=== PATIENT | female | born 1945 | race Caucasian/White ===

== ENCOUNTER 2023-12-17 08:23 | Emergency (ER) | payer OTHER ==
[~2023-12-17] VITALS: Ht 157.5 cm; Wt 80.5 kg
[~2023-12-17 08:23] MED LIST: METF-370 PO; OMEP20CA74 PO
[2023-12-17 09:21] LABS: Basophils # (auto) 0 10 ^3/uL (0-0.2); Basophils % (auto) 0.5 % (0.0-2.0); Eosinophils # (auto) 0.1 10 ^3/uL (0-0.8); Eosinophils % (auto) 2.2 % (0.0-7.0); Hematocrit 45.4 % (36.0-46.0); Hemoglobin 15.1 g/dL (12.2-16.2); Lymphocytes # (auto) 2.3 10 ^3/uL (0.4-5.4); Lymphocytes % (auto) 34.1 % (10.0-50.0); Mean Corpuscular Hemoglobin 30.3 pg (28.0-32.0); Mean Corpuscular Hgb Conc. 33.2 g/dL (32.0-36.0); Mean Corpuscular Volume 91.4 fL (80.0-100.0); Monocytes # (auto) 0.4 10 ^3/uL (0-1.3); Monocytes % (auto) 5.5 % (0.0-12.0); Neutrophils # (auto) 3.9 10 ^3/uL (1.6-8.6); Neutrophils % (auto) 57.7 % (37.0-80.0); Nucleated Red Blood Cells % 0.1 %; Red Blood Cells 4.97 10^6/uL (4.0-5.20); Red Cell Distribution Width 14.8 % (11.8-14.3); White Blood Cell 6.7 10^3/uL (4.4-10.8)
[2023-12-17 09:22] LABS: Chloride 109 mmol/L (98-107); Potassium 4.1 mmol/L (3.5-5.1); Sodium 141 mmol/L (136-145)
[2023-12-17 09:24] LABS: Anion Gap 3 (5-15); Calcium 9.7 mg/dL (8.5-10.1); Carbon Dioxide 29 mmol/L (20-30)
[2023-12-17 09:29] LABS: BUN/Creatinine Ratio 15.5 (10.0-20.0); Blood Urea Nitrogen 16 mg/dL (9-23); Glucose 108 mg/dL (74-106)
[2023-12-17 09:36] LABS: Urine Bacteria FEW /hpf (None Seen); Urine Blood Negative /uL (Negative); Urine Clarity Clear (Clear); Urine Color Yellow (Yellow); Urine Protein, UAD TRACE (Negative); Urine Specific Gravity 1.026 (1.001-1.035); Urine Urobilinogen Normal (Negative); Urine WBC 2 /hpf (0 - 5); Urine pH 5.5 (5.0-8.0)
[2023-12-17] MEDS ORDERED: NITR-87 PO (09:54)
[2023-12-17] MEDS ORDERED: PHEN99.5 PO (09:54)
[2023-12-17 09:58] VITALS: BP 187/99; PULSE 90; RESP 18; TEMP 98.1; O2SAT 98
[2023-12-17] MEDS: LOSARTAN POTASSIUM 25 MG TAB PO ONE (09:58)
== END 2023-12-17 12:26 | disposition home or self-care (01) ==
LOC: ER 08:23
DX: N39.0 Urinary tract infection, site not specified (principal); R00.2 Palpitations; E11.9 Type 2 diabetes mellitus without complications; K21.9 Gastro-esophageal reflux disease without esophagitis; I10 Essential (primary) hypertension; Z90.49 Acquired absence of other specified parts of digestive tract; Z90.710 Acquired absence of both cervix and uterus; Z88.2 Allergy status to sulfonamides
CPT/HCPCS: 36415; 71045; 80048; 81001; 84484; 85025; 87086; 87088; 87186; 93005

== ENCOUNTER 2024-03-22 16:24 | Emergency (ER) | payer OTHER ==
[~2024-03-22] VITALS: Ht 157.5 cm; Wt 80.2 kg
[~2024-03-22 16:24] MED LIST changes: +NITR-87 PO; +PHEN99.5 PO
[2024-03-22 16:36] VITALS: BP 142/70; PULSE 92; RESP 18; O2SAT 95
== END 2024-03-22 18:11 | disposition left against medical advice (07) ==
LOC: ER 16:24
DX: M79.641 Pain in right hand (principal); M79.601 Pain in right arm; M79.604 Pain in right leg; Z53.21 Procedure and treatment not carried out due to patient leaving prior to being seen by health care provider

== ENCOUNTER 2024-03-24 06:35 | Emergency (ER) | payer OTHER ==
[~2024-03-24] VITALS: Ht 157.5 cm; Wt 81.0 kg
[2024-03-24] MEDS: TETANUS-DIPTH-ACEL PERTUSSIS 0.5ML SYR Tdap IM ONE (08:30)
[2024-03-24 09:33] VITALS: BP 108/69; PULSE 71; RESP 18; TEMP 98; O2SAT 96
== END 2024-03-24 09:35 | disposition home or self-care (01) ==
LOC: ER 06:35
DX: S40.021A Contusion of right upper arm, initial encounter (principal); S60.221A Contusion of right hand, initial encounter; E11.9 Type 2 diabetes mellitus without complications; K21.9 Gastro-esophageal reflux disease without esophagitis; I10 Essential (primary) hypertension; Z90.49 Acquired absence of other specified parts of digestive tract; Z90.710 Acquired absence of both cervix and uterus; Z88.2 Allergy status to sulfonamides; W01.0XXA Fall on same level from slipping, tripping and stumbling without subsequent striking against object, initial encounter; Y93.89 Activity, other specified; Y92.89 Other specified places as the place of occurrence of the external cause; Y99.8 Other external cause status; Z85.9 Personal history of malignant neoplasm, unspecified
CPT/HCPCS: 73060; 73130; 90471; 90715

== ENCOUNTER 2024-11-26 07:56 | Inpatient (IN) | payer OTHER ==
[~2024-11-26] VITALS: Ht 157.5 cm; Wt 44.4 kg
--- NOTE | 2024-11-26 08:18 | ECG ---
[facility] Test Date: 2024-11-26 Test Time: 08:11:01 Pat Name: JULIA MARIN Department: ER Room: Gender: F Diffusion Operator: JEAN : 1945 Requested By: HERSON VILLATORO Order Number: [id number] Reading MD: Roman Villegas Measurements Intervals [place] Rate: 102 P: 44 TX: 135 QRS: -25 QRSD: 84 T: 31 QT: 331 QTc: 432 Interpretive Statements Sinus tachycardia Borderline left axis deviation Abnormal R-wave progression, late transition Baseline wander in lead(s) V1 Electronically Signed On 11-26-2024 8:22:40 PST by Roman Villegas Please click the below link to view image of tracing.
--- NOTE | 2024-11-26 08:35 | ED.PDOC ---
GI ASSESSMENT HPI Comments 79-year-old female presents with a chief complaint of abdominal pain, diarrhea with rectal bleeding x 2 days. Patient states that her pain is localized to her diffuse abdomen, nonradiating, describes as aching, and states that it has been progressively worsening over the last 2 days. Patient reports that she is having bright red, "jelly-like" diarrhea and is going to the restroom roughly 10 times a day, sometimes back to back. Patient relays that her symptoms sort of began after ingesting food that she states "did not taste right" after her son cooked her a meal. Patient denies any coffee ground emesis or black tarry stool. Patient denies recent travel. No other symptoms or modifying factors present at this time. Chief Complaint: GI Bleed Time Seen by MD: 08:24 Primary Care Provider: KEIRA Carlos Notes: Medications, Allergies Allergies: Coded Allergies: Sulfa Antibiotics (Verified Allergy, Unknown, 10/01/15) Home Meds Active Scripts Phenazopyridine HCl (Azo Urinary Pain Relief M) 99.5 Mg Tab, 99.5 MG PO BID for 3 Days, #6 TAB Prov:RICH DHILLON MD 12/17/23 Nitrofurantoin Monohydrate Mac (Macrobid) 100 Mg Cap, 100 MG PO BID for 10 Days, #20 CAP Prov:RICH DHILLON MD 12/17/23 Reported Medications Omeprazole (PRILOSEC) 20 Mg Cap, 1 CAP PO DAILY, #90 CAP 1 Refill 09/30/15 Metformin Hydrochloride (Metformin Hcl) 500 Mg Tab, 1 TAB PO BID, #60 TAB 3 Refills 09/30/15 Information Source: Patient Mode of Arrival: Ambulatory Timing: Days Duration: Since onset Prehospital treatment: None Quality: Aching Vomitus: None Stool: Other (BRIGHT RED DIARRHEA) Severity: Moderate Recent: Possible spoiled food Recent Hx of: None Pain Location: Diffuse Modifying Factors: Food Associated sign and symptoms: Diarrhea, Blood in Stool Past Medical History PAST MEDICAL HISTORY: Cancer, DM, GERD, HTN Surgical History: Cholecystectomy, Hysterectomy [employer] History: No Pertinent [employer] History Family History Family History: No family hx of DM, No family hx of HTN Social History Smoker: Non-Smoker Alcohol: Rarely Drugs: Denies Drug Use Lives In: Home Constitutional: denies: chills, diaphoresis, fatigue, fever, malaise, sweats, weakness, others EENTM: denies: blurred vision, double vision, ear bleeding, ear discharge, ear drainage, ear pain, ear ringing, eye pain, eye redness, hearing loss, mouth pain, mouth swelling, nasal discharge, nose bleeding, nose congestion, nose lester n, photophobia, tearing, throat pain, throat swelling, voice changes, others Respiratory: denies: cough, hemoptysis, orthopnea, SOB at rest, shortness of breath, SOB with excertion, stridor, wheezing, others Cardiovascular: denies: chest pain, dizzy spells, diaphoresis, Dyspnea on exertion, edema, irregular heart beat, left arm pain, lightheadedness, palpitations, PND, syncope, others Gastrointestinal: reports: abdominal pain, diarrhea, rectal bleeding; denies: abdomen distended, blood streaked bowels, constipated, dysphagia, difficulty swallowing, hematemesis, melena, nausea, poor appetite, poor fluid intake, rectal pain, vomiting, others Genitourinary: denies: abnormal vagina bleeding, burning, dyspareunia, dysuria, flank pain, frequency, hematuria, incontinence, pain, , vagina discharge, urgency, others Neurological: denies: dizziness, fainting, headache, left sided numbness, left sided weakness, numbness, paresthesia, pre-existing deficit, right sided n umbness, right sided weakness, seizure, speech problems, tingling, tremors, weakness, others Musculoskeletal: denies: back pain, gout, joint pain, joint swelling, muscle pain, muscle stiffness, neck pain, others Integumetry: denies: bruises, change in color, change in hair/nails, dryness, laceration, lesions, lumps, rash, wounds, others Allergic/Immunocompromised: denies: Difficulty Healing, Frequent Infections, Hives, Itching, others Hematologic/Lymphatic: denies: anemia, blood clots, easy bleeding, easy bruising, swollen glands, others Endocrine: denies: excessive hunger, excessive sweating, excessive thirst, excessive urination, flushing, intolerance to cold, intolerance to heat, unexplained weight gain, unexplained weight loss, others Psychiatric: denies: anxiety, bipolar disorder, depression, hopeless, panic disorder, schizophrenia, sleepless, suicidal, others All Other Systems: Reviewed and Negative Physical Exam General Appearance: Mild Distress, Normal HEENT: NOT DONE Neck: NOT DONE Respiratory: Chest Non-Tender, No Respiratory Distress, Normal Breath Sounds Cardiovascular: Tachycardia Breast Exam: Deferred Gastrointestinal: Diffuse, Tenderness Genitalia: Deferred Pelvic: Deferred Rectal: Deferred Extremities: No calf tenderness, Normal capillary refill, Normal inspection, Normal range of motion, Non-tender, No pedal edema Neurologic: Alert, rn picu II-XII nml as Tested, No Motor Deficits, Normal Affect, Normal Mood, No Sensory Deficits Cerebellar Function: Normal Reflexes: NOT DONE Skin: NOT DONE Lymphatic: NOT DONE Was a procedure done? Was a procedure done?: No GI differential Dx Differential Diagnosis: AAA, Appendicitis, Complete , Missed , Bowel Obstruction, Cholangitis, Cholecystitis, Constipation, Dysmenorrhea, Esophageal rupture, Gastritis/PUD, Gastroenteritis, GI hemorrhage, Hepatitis, Inflammatory BD, Pancreatitis, Trauma intraabdominal, Urinary Obstruction, Dehydration, Diabetes/ DKA, Drug toxicity, Electrolyte Imbalance, Food Poisoning, Mass, Esophageal Varicies X-Ray, Labs, Meds, VS Vital Signs Date Time Temp Pulse Resp B/P (MAP) Pulse Ox O2 Delivery O2 Flow Rate FiO2 11/26/24 08:51 82 13 93 Room Air* 0 21 11/26/24 08:50 97.5 82 17 144/66 (92) 93 97.5 11/26/24 08:17 97.8 112 20 131/80 (97) 95 11/26/24 08:11 102 Lab Test 11/26/24 11:06 11/26/24 09:23 11/26/24 08:08 Range/Units Urine Color Colorless Yellow Urine Clarity Clear Clear Urine pH 5.0 5.0-9.0 Urine Specific [place] 1.006 1.001-1.035 Urine Protein Negative Negative Urine Ketones Trace Negative Urine Blood Negative Negative /uL Urine Nitrite Negative Negative Urine Bilirubin Negative Negative Urine Urobilinogen Normal Negative mg/dL Urine Leukocyte Esterase Negative Negative /uL Urine RBC None seen 0 - 4 /hpf Urine Microscopic WBC < 1 0-5 /HPF Urine Squamous Epithelial Cells Few <5 /hpf Urine Bacteria None seen None Seen /hpf Urine Glucose Normal Normal mg/dL White Blood Count 7.4 4.4-10.8 10^3/uL Red Blood Count 4.43 4.0-5.20 10^6/uL Hemoglobin 13.8 12.2-16.2 g/dL Hematocrit 41.4 36.0-46.0 % Mean Corpuscular Volume 93.5 80.0-100.0 fL Mean Corpuscular Hemoglobin 31.1 28.0-32.0 pg Mean Corpuscular Hemoglobin Concent 33.2 32.0-36.0 g/dL Red Cell Distribution Width 14.4 H 11.8-14.3 % Platelet Count 166 140-450 10^3/uL Mean Platelet Volume 9.3 6.9-10.8 fL Neutrophils (%) (Auto) 73.9 37.0-80.0 % Lymphocytes (%) (Auto) 15.3 10.0-50.0 % Monocytes (%) (Auto) 7.3 0.0-12.0 % Eosinophils (%) (Auto) 3.1 0.0-7.0 % Basophils (%) (Auto) 0.4 0.0-2.0 % Neutrophils # (Auto) 5.5 1.6-8.6 10 ^3/uL Lymphocytes # (Auto) 1.1 0.4-5.4 10 ^3/uL Monocytes # (Auto) 0.5 0-1.3 10 ^3/uL Eosinophils # (Auto) 0.2 0-0.8 10 ^3/uL Basophils # (Auto) 0 0-0.2 10 ^3/uL Nucleated Red Blood Cells 0.0 % Sodium Level 143 136-145 mmol/L Potassium Level 3.4 L 3.5-5.1 mmol/L Chloride Level 113 H 98-107 mmol/L Carbon Dioxide Level 22 20-31 mmol/L Anion Gap 8 5-15 Blood Urea Nitrogen 9 9-23 mg/dL Creatinine 0.82 0.550-1.02 mg/dL Glomerular Filtration Rate Calc 72 >90 mL/min BUN/Creatinine Ratio 11.0 10.0-20.0 Serum Glucose 107 H 74-106 mg/dL Lactic Acid Level 1.3 0.4-2.0 mmol/L Calcium Level 9.3 8.7-10.4 mg/dL Total Bilirubin 0.9 0.2-1.0 mg/dL Aspartate Amino Transferase (AST) 18 13-40 U/L Alanine Aminotransferase (ALT) 18 7-40 U/L Alkaline Phosphatase 95 46-116 U/L Total Protein 5.5 L 5.7-8.2 g/dL Albumin 3.7 3.2-4.8 g/dL Lipase 24 12-53 U/L POC Glucose 127 H 70-106 mg/dl Current Medications Medications (Trade) Dose Ordered Sig/David Route Start Time Stop Time Status Last Admin Sodium Chloride 1,000 ml @ 1,000 mls/hr Q1H ONCE IVB 11/26/24 08:30 11/26/24 09:29 DC 11/26/24 08:47 X-Ray, Labs, Meds, VS Comment 79-year-old female presents with a chief complaint of abdominal pain, diarrhea with rectal bleeding x 2 days. Patient states that her pain is localized to her diffuse abdomen, nonradiating, describes as aching, and states that it has been progressively worsening over the last 2 days. Patient reports that she is having bright red, "jelly-like" diarrhea and is going to the restroom roughly 10 times a day, sometimes back to back. Patient relays that her symptoms sort of began after ingesting food that she states "did not taste right" after her son cooked her a meal. Patient denies any coffee ground emesis or black tarry stool. Patient denies recent travel. No other symptoms or modifying factors present at this time. Here, the patient was noted to have what appears to be metastatic disease to the lungs. Considering she was complaining of GI issues, I am concerned the primary lesion is in the colon. Concerned she was having active GI bleed, I will admit the patient for further workup and management. Time of 1ST Reevaluation: 08:54 Reevaluation 1ST: Unchanged Patient Education/Counseling: Diagnosis, Treatment, Prognosis Family Education/Counseling: Diagnosis, Treatment, Prognosis Departure 1 Departure Time of Disposition: 13:38 Impression: Primary Impression: Abdominal pain Additional Impressions: Hematochezia Pulmonary nodule Disposition: ADMITTED INPATIENT Condition: Serious Critical Care Note Critical Care Time?: No Stability Stability form required: No Heart Score Heart Score: Heart Score Response (Comments) Value History N/A 0 EKG N/A 0 Age N/A 0 Risk Factors N/A 0 Troponin N/A 0 Total 0 I personally scribed for HERSON VILLATORO MD ([email or web address]) on 11/26/24 at 08:35. Electronically submitted by Anand [email or web address]). HERSON VILLATORO MD Nov 26, 2024 08:35
[2024-11-26] MEDS: SODIUM CHLORIDE 0.9% 1,000 ML IVB ONE (08:47)
[2024-11-26 08:51] VITALS: PULSE 82; RESP 13; O2SAT 93
--- NOTE | 2024-11-26 08:56 | DVH ---
CHEST RADIOGRAPH Indication: Dyspnea Technique: Single frontal view of the chest was obtained Comparison: XY CHEST XRAY 1 VIEW on DOS: 12/17/23 FINDINGS: Lines and Tubes: None Lungs: Multiple nodular densities at the lung bases. Pleura: No effusion. No pneumothorax. Cardiomediastinal contours: Unremarkable Bones: No acute osseous abnormality. IMPRESSION: 1. Multiple nodular densities at the lung bases. No focal airspace consolidation.
--- NOTE | 2024-11-26 09:06 | DVH ---
Exam: CT CT AB PEL WO CON-NO ORAL OR IV History: abd pain Comparison Study: None available at time of dictation. Technique: Multidetector spiral CT of the abdomen and pelvis was performed from lung bases to pubic s ymphysis. Imaging was performed without intravenous contrast. Coronal and sagittal multiplanar refor mats were obtained from the axial data set by the technologist. Radiation Dose : 1. Abdomen/Pelvis: CTDIvol 16.9 mGy, DLP 807.9 mGy*cm. Findings: Evaluation of vasculature and solid organs is limited due to lack of intravenous contrast use. Lung Bases: There are innumerable lung nodules in the lower lobes, the largest measuring 1.0 cm in th e right lower lobe. Coronary artery calcifications. Normal size heart. No pericardial effusion. Liver: The liver is normal in size. Coarse calcification along the liver margin. No obvious lesion n oted within the liver Gallbladder and Biliary Tree: The gallbladder is surgically absent. No intrahepatic or extrahepatic biliary ductal dilatation. Spleen: There are punctate calcifications in the spleen. Pancreas: The pancreas is grossly unremarkable. Adrenal Glands: Unremarkable Kidneys: Left renal atrophy. No right intrarenal calculi. There is a right cortical renal cyst measur ing 2.1 cm. GI tract: The stomach is grossly normal in appearance. No evidence of small bowel wall thickening or abnormal dilatation to suggest bowel obstruction. Diffuse colonic diverticulosis. Wall thickening an d fat stranding of the sigmoid colon consistent with acute sigmoid diverticulitis. Normal appendix. Peritoneum/mesentery/retroperitoneum. No evidence of free intraperitoneal air. No ascites. No evidenc e of suspicious lymphadenopathy. Abdominal Wall: Umbilical hernia containing fat and coarse calcifications. Vasculature: The visualized abdominal aorta is normal in size and caliber. Evaluation of abdominal a nd pelvic vessels is limited due to lack of intravenous contrast. Urinary Bladder: Grossly unremarkable for degree of distention. Pelvic Organs: 2.9 cm right adnexal cystic lesion. Hysterectomy. Calcification in the pelvis. Musculoskeletal: No aggressive focal bony lesions, acute fractures or dislocation. Severe S shaped sc oliosis. Soft tissues: There is a circumscribed nodule in the right breast measuring 9 mm. There is another no dule in the anterior right breast measuring 8 mm. Postsurgical changes in the bilateral groin. IMPRESSION: 1. Acute sigmoid diverticulitis. No fluid collection or pneumoperitoneum. 2. Multiple pulmonary nodules at the lung bases. These are concerning for metastatic nodules. Correl ation with patient history recommended. If there is no known history of malignancy, a noncontrast CT of the chest is suggested. PET-CT may also be obtained clinically as warranted. 3. Cholecystectomy. 4. Hysterectomy. 5. Left renal atrophy. 6. Right breast nodule. Correlation with dedicated breast imaging is recommended.
[2024-11-26 09:41] LABS: Basophils # (auto) 0 10 ^3/uL (0-0.2); Basophils % (auto) 0.4 % (0.0-2.0); Eosinophils # (auto) 0.2 10 ^3/uL (0-0.8); Eosinophils % (auto) 3.1 % (0.0-7.0); Hematocrit 41.4 % (36.0-46.0); Hemoglobin 13.8 g/dL (12.2-16.2); Lymphocytes # (auto) 1.1 10 ^3/uL (0.4-5.4); Lymphocytes % (auto) 15.3 % (10.0-50.0); Mean Corpuscular Hemoglobin 31.1 pg (28.0-32.0); Mean Corpuscular Hgb Conc. 33.2 g/dL (32.0-36.0); Mean Corpuscular Volume 93.5 fL (80.0-100.0); Monocytes # (auto) 0.5 10 ^3/uL (0-1.3); Monocytes % (auto) 7.3 % (0.0-12.0); Neutrophils # (auto) 5.5 10 ^3/uL (1.6-8.6); Neutrophils % (auto) 73.9 % (37.0-80.0); Platelet Count (auto) 166 10^3/uL (140-450); Red Blood Cells 4.43 10^6/uL (4.0-5.20); Red Cell Distribution Width 14.4 % (11.8-14.3); White Blood Cell 7.4 10^3/uL (4.4-10.8)
[2024-11-26 09:54] LABS: Alanine Aminotransferase 18 U/L (7-40); Albumin 3.7 g/dL (3.2-4.8); Alkaline Phosphatase 95 U/L (46-116); Anion Gap 8 (5-15); Aspartate Aminotransferase 18 U/L (13-40); Bilirubin, Total 0.9 mg/dL (0.2-1.0); Blood Urea Nitrogen 9 mg/dL (9-23); Calcium 9.3 mg/dL (8.7-10.4); Carbon Dioxide 22 mmol/L (20-31); Chloride 113 mmol/L (98-107); Glucose 107 mg/dL (74-106); Potassium 3.4 mmol/L (3.5-5.1); Sodium 143 mmol/L (136-145)
[2024-11-26 09:55] LABS: Total Protein 5.5 g/dL (5.7-8.2)
[2024-11-26 10:58] LABS: Lipase 24 U/L (12-53)
[2024-11-26 11:17] LABS: Urine Bacteria None Seen /hpf (None Seen)
[2024-11-26 11:39] LABS: Urine Blood Negative /uL (Negative); Urine Clarity Clear (Clear); Urine Color Colorless (Yellow); Urine Protein, UAD Negative (Negative); Urine Specific Gravity 1.006 (1.001-1.035); Urine Squamous Epithelial Cell FEW /hpf (<5); Urine Urobilinogen Normal (Negative); Urine WBC < 1 /HPF (0-5)
[2024-11-26] MEDS: POTASSIUM CHL 20 Meq TABLET PO ONE (17:26)
[2024-11-26] MEDS ORDERED: DOCUSATE SOD 100 MG CAP PO PRN (19:15)
[2024-11-26] MEDS ORDERED: DEXTROSE (50%) 50ML SYRG IV PRN (19:15)
[2024-11-26] MEDS ORDERED: ACETAMINOPHEN 325 MG TAB PO PRN (19:15)
[2024-11-26] MEDS: cefTRIAXone 1GM/50ML D5W 50 ML IV ONE (19:15)
[2024-11-26 19:40] VITALS: PULSE 84; RESP 18; O2SAT 94
--- NOTE | 2024-11-26 20:53 | DVHHP2 ---
History of Present Illness Reason for Visit: GI bleed History of Present Illness The patient is a 79-year-old female with past medical history of cancer, DM, GERD, and hypertension who presented to [facility] ED with complaint of abdominal pain. Patient reports symptoms progressively get worse with diarrhea, rectal bleeding for the past 2 days, localized diffuse abdominal pain, non radiating, getting worse today that prompted this visit. Patient also reports that she is having bright red, "jelly-like" diarrhea and is going to the restroom roughly 10 times a day, sometimes back to back. Patient was seen and evaluated in the ED, laboratory data shows WBC 7.4, hemoglobin 13.8, hematocrit 41.4, sodium 143, potassium 3.4, BUN 9, creatinine 0.82, GFR 72, glucose 107, protein 5.5, lipase 24, blood pressure 144/66, heart rate 82, temperature 97.8 F, O2 saturation 93% on oxygen. Abdomen/pelvis CT revealing acute sigmoid diverticulitis; multiple pulmonary nodules at the lung bases; this concerning for metastatic nodules. Patient was started on IV antibiotic regimen reena Braden see medication orders section in the computer. On my assessment, patient denied chest pain, no headache, no dizziness, no abdominal pain, no nausea, vomiting, no fever, no chills. Patient was admitted for further evaluation and medical management. Past Medical History Cancer, DM, GERD, HTN Past Surgical History Cholecystectomy, Hysterectomy Family History Reviewed, noncontributory to the management of this case. Past Social History The patient lives at home, denies smoking, alcohol or illicit drugs abuse. Review of Systems Constitutional: No: Fever, Chills, Sweats, Weakness, Malaise, Other Eyes: No: Pain, Vision change, Conjunctivae inflammation, Eyelid inflammation, Other, Redness ENT: No: Ear pain, Ear discharge, Nose pain, Nose discharge, Nose congestion, Mouth pain, Mouth swelling, Throat pain, Throat swelling, Other Respiratory: No: Cough, Dry, Shortness of breath, SOB with excertion, Wheezing, Hemoptysis, Pleuritic Pain, Sputum, Wheezing, Other Cardiovascular: No: Chest Pain, Palpitations, Orthopnea, Paroxysmal Noc. Dyspnea, Edema, Lt Headedness, Other Gastrointestinal: Nausea, Vomiting, Diarrhea, Hematochezia; No: Abdominal Pain, Constipation, Melena, Other Genitourinary: No Dysuria, No Frequency, No Incontinence, No Hematuria, No Retention, No Other Musculoskeletal: No: other, neck pain, shoulder pain, arm pain, back pain, hand pain, leg pain, foot pain Skin: No: Rash, Lesions, Jaundice, Bruising, Other Neurological: No: Weakness, Numbness, Incoordination, Change in speech, Confusion, Seizures, Other Allergies: Coded Allergies: Sulfa Antibiotics (Verified Allergy, Unknown, 10/01/15) Medications Current Medications Medications Dose Ordered Sig/David Route Start Time Stop Time Status Last Admin Dose Admin Pantoprazole Sodium 40 mg DAILY IV 11/27/24 10:00 Metronidazole 100 ml @ 100 mls/hr Q8HR IV 11/26/24 22:00 Ceftriaxone Sodium 50 ml @ 100 mls/hr DAILY@09 IV 11/27/24 09:00 Diagnostic Test (Pha) 1 strip ACHS 11/26/24 22:00 Insulin Human Regular ACHS SC 11/26/24 22:00 Dextrose 50 ml UD PRN IV 11/26/24 19:15 Sodium Chloride 10 ml Q8HR IV 11/26/24 22:00 Acetaminophen/ Hydrocodone Bitart 1 tab Q4HP PRN PO 11/26/24 19:15 Ondansetron HCl 4 mg Q4HP PRN IV 11/26/24 19:15 Docusate Sodium 100 mg BIDPRN PRN PO 11/26/24 19:15 Acetaminophen 650 mg Q6HP PRN PO 11/26/24 19:15 Exam Vital Signs Vital Signs Date Time Temp Pulse Resp B/P (MAP) Pulse Ox O2 Delivery O2 Flow Rate FiO2 11/26/24 18:40 86 16 163/86 (111) 11/26/24 15:47 95 11/26/24 08:51 Room Air* 0 21 11/26/24 08:50 97.5 97.5 General Appearance: Alert, Oriented X3, Cooperative, No acute distress HEENT: Atraumatic, PERRLA, EOMI, Mucous membr. moist/pink Respiratory: Clear to auscultation, Normal air movement Cardiovascular: Regular rate, Normal S1, Normal S2, No murmurs Abdominal: Normal bowel sounds, Soft, No hepatospenomegaly, No masses, Other (Reports tenderness) Extremities: No clubbing, No cyanosis, No edema, Normal pulses, No tenderness/swelling Skin: No rashes, No breakdown, No significant lesion Neuro: Normal gait, Normal speech, Strength at 5/5 X4 ext, Normal tone, Sensation intact, Cranial nerves 3-12 NL, Reflexes 2+ Psych/Mental Status: Mental status NL, Mood NL Labs/Xrays Labs Test 11/26/24 18:54 11/26/24 11:06 11/26/24 09:23 11/26/24 08:08 Range/Units Stool Occult Blood Positive Negative Stool Occult Blood Sample #3 Negative Urine Color Colorless Yellow Urine Clarity Clear Clear Urine pH 5.0 5.0-9.0 Urine Specific [place] 1.006 1.001-1.035 Urine Protein Negative Negative Urine Ketones Trace Negative Urine Blood Negative Negative /uL Urine Nitrite Negative Negative Urine Bilirubin Negative Negative Urine Urobilinogen Normal Negative mg/dL Urine Leukocyte Esterase Negative Negative /uL Urine RBC None seen 0 - 4 /hpf Urine Microscopic WBC < 1 0-5 /HPF Urine Squamous Epithelial Cells Few <5 /hpf Urine Bacteria None seen None Seen /hpf Urine Glucose Normal Normal mg/dL White Blood Count 7.4 4.4-10.8 10^3/uL Red Blood Count 4.43 4.0-5.20 10^6/uL Hemoglobin 13.8 12.2-16.2 g/dL Hematocrit 41.4 36.0-46.0 % Mean Corpuscular Volume 93.5 80.0-100.0 fL Mean Corpuscular Hemoglobin 31.1 28.0-32.0 pg Mean Corpuscular Hemoglobin Concent 33.2 32.0-36.0 g/dL Red Cell Distribution Width 14.4 H 11.8-14.3 % Platelet Count 166 140-450 10^3/uL Mean Platelet Volume 9.3 6.9-10.8 fL Neutrophils (%) (Auto) 73.9 37.0-80.0 % Lymphocytes (%) (Auto) 15.3 10.0-50.0 % Monocytes (%) (Auto) 7.3 0.0-12.0 % Eosinophils (%) (Auto) 3.1 0.0-7.0 % Basophils (%) (Auto) 0.4 0.0-2.0 % Neutrophils # (Auto) 5.5 1.6-8.6 10 ^3/uL Lymphocytes # (Auto) 1.1 0.4-5.4 10 ^3/uL Monocytes # (Auto) 0.5 0-1.3 10 ^3/uL Eosinophils # (Auto) 0.2 0-0.8 10 ^3/uL Basophils # (Auto) 0 0-0.2 10 ^3/uL Nucleated Red Blood Cells 0.0 % Sodium Level 143 136-145 mmol/L Potassium Level 3.4 L 3.5-5.1 mmol/L Chloride Level 113 H 98-107 mmol/L Carbon Dioxide Level 22 20-31 mmol/L Anion Gap 8 5-15 Blood Urea Nitrogen 9 9-23 mg/dL Creatinine 0.82 0.550-1.02 mg/dL Glomerular Filtration Rate Calc 72 >90 mL/min BUN/Creatinine Ratio 11.0 10.0-20.0 Serum Glucose 107 H 74-106 mg/dL Lactic Acid Level 1.3 0.4-2.0 mmol/L Calcium Level 9.3 8.7-10.4 mg/dL Total Bilirubin 0.9 0.2-1.0 mg/dL Aspartate Amino Transferase (AST) 18 13-40 U/L Alanine Aminotransferase (ALT) 18 7-40 U/L Alkaline Phosphatase 95 46-116 U/L Total Protein 5.5 L 5.7-8.2 g/dL Albumin 3.7 3.2-4.8 g/dL Lipase 24 12-53 U/L POC Glucose 127 H 70-106 mg/dl PATIENT: JULIA MARIN ACCT: [id number] UNIT: [id number] : 1945 LOC: ER ROOM / BED: / AGE / SEX: 79 / F ADM STATUS: REG ER SERVICE [id number] ORDERING PHYSICIAN: HERSON VILLATORO MD PROCEDURE(s): ABPL - CT AB PEL WO CON-NO ORAL OR IV REASON: abd pain ORDER NUMBER(s): [id number], ACCESSION NUMBER(s): [id number] Exam: CT CT AB PEL WO CON-NO ORAL OR IV History: abd pain Comparison Study: None available at time of dictation. Technique: Multidetector spiral CT of the abdomen and pelvis was performed from lung bases to pubic symphysis. Imaging was performed without intravenous contrast. Coronal and sagittal multiplanar reformats were obtained from the axial data set by the technologist. Radiation Dose: 1. Abdomen/Pelvis: CTDIvol 16.9 mGy, DLP 807.9 mGy*cm. Findings: Evaluation of vasculature and solid organs is limited due to lack of intravenous contrast use. Lung Bases: There are innumerable lung nodules in the lower lobes, the largest measuring 1.0 cm in the right lower lobe. Coronary artery calcifications. Normal size heart. No pericardial effusion. Liver: The liver is normal in size. Coarse calcification along the liver margin. No obvious lesion noted within the liver Gallbladder and Biliary Tree: The gallbladder is surgically absent. No intrahepatic or extrahepatic biliary ductal dilatation. Spleen: There are punctate calcifications in the spleen. Pancreas: The pancreas is grossly unremarkable. Adrenal Glands: Unremarkable Kidneys: Left renal atrophy. No right intrarenal calculi. There is a right cortical renal cyst measuring 2.1 cm. GI tract: The stomach is grossly normal in appearance. No evidence of small bowel wall thickening or abnormal dilatation to suggest bowel obstruction. Diff use colonic diverticulosis. Wall thickening and fat stranding of the sigmoid colon consistent with acute sigmoid diverticulitis. Normal appendix. Peritoneum/mesentery/retroperitoneum. No evidence of free intraperitoneal air. No ascites. No evidence of suspicious lymphadenopathy. Abdominal Wall: Umbilical hernia containing fat and coarse calcifications. Vasculature: The visualized abdominal aorta is normal in size and caliber. Evaluation of abdominal and pelvic vessels is limited due to lack of intravenous contrast. Urinary Bladder: Grossly unremarkable for degree of distention. Pelvic Organs: 2.9 cm right adnexal cystic lesion. Hysterectomy. Calcification in the pelvis. Musculoskeletal: No aggressive focal bony lesions, acute fractures or dislocation. Severe S shaped scoliosis. Soft tissues: There is a circumscribed nodule in the right breast measuring 9 mm. There is another nodule in the anterior right breast measuring 8 mm. Postsurgical changes in the bilateral groin. IMPRESSION: 1. Acute sigmoid diverticulitis. No fluid collection or pneumoperitoneum. 2. Multiple pulmonary nodules at the lung bases. These are concerning for meta static nodules. Correlation with patient history recommended. If there is no known history of malignancy, a noncontrast CT of the chest is suggested. PET-CT may also be obtained clinically as warranted. 3. Cholecystectomy. 4. Hysterectomy. 5. Left renal atrophy. 6. Right breast nodule. Correlation with dedicated breast imaging is recommended. ORDERING PHYSICIAN: HERSON VILLATORO MD PROCEDURE(s): CXRP - CHEST PORTABLE REASON: dyspnea ORDER NUMBER(s): [id number], ACCESSION NUMBER(s): [id number] CHEST RADIOGRAPH Indication: Dyspnea Technique: Single frontal view of the chest was obtained Comparison: XY CHEST XRAY 1 VIEW on DOS: 12/17/23 FINDINGS: Lines and Tubes: None Lungs: Multiple nodular densities at the lung bases. Pleura: No effusion. No pneumothorax. Cardiomediastinal contours: Unremarkable Bones: No acute osseous abnormality. IMPRESSION: 1. Multiple nodular densities at the lung bases. No focal airspace consolidation. Assessment/Plan Assessment/Plan Abdominal pain Hematochezia GI bleed Pulmonary nodule Acute sigmoid diverticulitis Plan 1. Admit to telemetry unit 2. Breathing treatment 3. Pain control management 4. IV antibiotic management 5. Management of fluids and electrolytes 6. Consultation for hospitalist/Hematology-Oncology 7. Diagnostic test abdomen/pelvis CT 8. DVT prophylaxis-on SCDs 9. Repeat labs CBC, CMP in a.m. 10. Home medication reviewed and reconciled 11. Continue with current medical management 12. Treatment plan discussed with patient and RN. Patient verbalized understanding. Plan discussed with: Patient, Other (RN) My Orders Orders - YENI VERGARA DNP Procedure Category Date Status Time Pantoprazole PHA 11/27/24 In Process (Protonix) 10:00 Metronidazole PHA 11/26/24 In Process 500mg/100ml (Flagyl 22:00 Ceftriaxone 1gm/50ml PHA 11/27/24 In Process D5w (Rocephin) 09:00 Glucose Blood PHA 11/26/24 In Process (Accu-Chek Comfort 22:00 Insulin R (Human) PHA 11/26/24 In Process (Insulin R) 22:00 Dextrose 50% Syringe PHA 11/26/24 In Process 19:15 Allergies DEMETRIUS 11/26/24 In Process 19:12 Code Status CODE 11/26/24 Transmitted 19:12 Sodium Chloride Lock PHA 11/26/24 In Process (Saline Lock Ns) 22:00 Oxygen Per Hour RT 11/26/24 Transmitted 19:12 Hydrocodone-Acet PHA 11/26/24 In Process 5/325mg Tab ([place] 19:15 Ondansetron Hcl PHA 11/26/24 In Process (Zofran) 19:15 Docusate Sodium PHA 11/26/24 In Process Capsule (Colace 19:15 Fall Risk Precautions DEMETRIUS 11/26/[address] 19:12 Complete Blood Count LAB 11/27/24 Verified 04:00 Comprehensive LAB 11/27/24 Verified Metabolic Panel 04:00 Condition: Serious DEMETRIUS 11/26/24 In Process 19:12 Acetaminophen Tablet PHA 11/26/24 In Process (Tylenol Tablet) 19:15 Clear Liq Diet DIET 11/27/24 Transmitted Breakfast Sequential DEMETRIUS 11/26/24 In Process Compression Device * Hematology/Oncology CONS 11/26/24 Transmitted Consult 19:31 Problem List: (1) Abdominal pain (2) Hematochezia (3) GI bleed (4) Pulmonary nodule (5) Sigmoid diverticulitis Date of Service: Nov 26, 2024 Billing Provider: YENI VERGARA DNP Common Visit Codes: [id number] INP/OBS CARE (HIGH) YENI VERAGRA DNP Nov 26, 2024 20:53
[2024-11-26] MEDS ORDERED: NITROGLYCERIN 0.4 MG SL TAB SL PRN (21:00)
[2024-11-26] MEDS: SODIUM CHLOR 0.9% PF (SALINE LOCK) 10ML VIAL/SYR IV SCH (22:00)
[2024-11-26] MEDS: InsuLIN REG 1unit/0.01ml Soln (100units/ml) SC SCH (22:00)
[2024-11-26] MEDS: metroNIDAZOLE 500MG/100ML 100 ML IV SCH (22:00)
[2024-11-26] MEDS: ACCU-CHEK COMFORT CURVE STRIP VI SCH (22:00)
[2024-11-26] MEDS: MORPHINE SULFATE INJ 2 MG/ml SYRG IV PRN (22:55)
[2024-11-26] MEDS: ONDANSETRON HCL 4 MG/2 ML VIAL IV PRN (22:56)
[2024-11-26] MEDS: HYDROcodone-ACET 5/325MG TAB PO PRN (22:56)
[2024-11-26 23:46] VITALS: BP 125/66; PULSE 69; RESP 18; TEMP 97.4; O2SAT 87
[2024-11-26 23:47] VITALS: PULSE 69; RESP 18; O2SAT 87
[2024-11-26 23:56] VITALS: BP 125/66; PULSE 69; RESP 18; TEMP 97.4; O2SAT 87
[2024-11-27] VITALS (10 sets, daily range): BP systolic 110–127; BP diastolic 45–66; PULSE 64–80; RESP 17–19; TEMP 97.4–98.3; O2SAT 69–98
[2024-11-27 06:33] LABS: Basophils # (auto) 0 10 ^3/uL (0-0.2); Basophils % (auto) 0.2 % (0.0-2.0); Eosinophils # (auto) 0.3 10 ^3/uL (0-0.8); Eosinophils % (auto) 3.7 % (0.0-7.0); Hematocrit 45.4 % (36.0-46.0); Hemoglobin 15.2 g/dL (12.2-16.2); Lymphocytes # (auto) 1.6 10 ^3/uL (0.4-5.4); Lymphocytes % (auto) 18.9 % (10.0-50.0); Mean Corpuscular Hemoglobin 31.5 pg (28.0-32.0); Mean Corpuscular Hgb Conc. 33.5 g/dL (32.0-36.0); Mean Corpuscular Volume 93.8 fL (80.0-100.0); Monocytes # (auto) 0.7 10 ^3/uL (0-1.3); Monocytes % (auto) 8.5 % (0.0-12.0); Neutrophils # (auto) 5.8 10 ^3/uL (1.6-8.6); Neutrophils % (auto) 68.7 % (37.0-80.0); Nucleated Red Blood Cells % 0.1 %; Platelet Count (auto) 197 10^3/uL (140-450); Red Blood Cells 4.83 10^6/uL (4.0-5.20); Red Cell Distribution Width 14.2 % (11.8-14.3); White Blood Cell 8.4 10^3/uL (4.4-10.8)
[2024-11-27 06:54] LABS: Alanine Aminotransferase 19 U/L (7-40); Albumin 4.4 g/dL (3.2-4.8); Alkaline Phosphatase 107 U/L (46-116); Anion Gap 8 (5-15); Aspartate Aminotransferase 19 U/L (13-40); BUN/Creatinine Ratio 11.3 (10.0-20.0); Bilirubin, Total 0.9 mg/dL (0.2-1.0); Blood Urea Nitrogen 11 mg/dL (9-23); Carbon Dioxide 24 mmol/L (20-31); Glucose 105 mg/dL (74-106); Potassium 3.8 mmol/L (3.5-5.1); Sodium 142 mmol/L (136-145); Total Protein 6.5 g/dL (5.7-8.2)
[2024-11-27 06:58] LABS: Chloride 110 mmol/L (98-107)
[2024-11-27] MEDS: PANTOPRAZOLE 40 MG/10 ML VIAL INJ IV SCH (09:08)
[2024-11-27] MEDS: cefTRIAXone 1GM/50ML D5W 50 ML IV SCH (09:09)
--- NOTE | 2024-11-27 12:47 | DVHPN2 ---
Subjective 79-year-old female with a history of vulvar cancer 5 years ago status post surgery, she also says she has a history of lung cancer that she follows at in [facility], came with a chief complaint of diarrhea and abdominal pain and blood in his stools for 4 days She was diagnosed with acute diverticulitis and admitted CT scan also showed multiple pulmonary nodules concerning for metastatic nodules and a right breast nodule Changes from previous H/P or p: Changes Eyes: No Pain, No Vision change, No Conjunctivae inflammation, No Eyelid inflammation, No Other, No Redness ENT: No Ear pain, No Ear discharge, No Nose pain, No Nose discharge, No Nose congestion, No Mouth pain, No Mouth swelling, No Throat pain, No Throat swelling, No Other Cardiovascular: No Chest Pain, No Palpitations, No Orthopnea, No Paroxysmal Noc. Dyspnea, No Edema, No Lt Headedness, No Other Respiratory: No Cough, No Dry, No Shortness of breath, No SOB with excertion, No Wheezing, No Hemoptysis, No Pleuritic Pain, No Sputum, No Other Gastrointestinal: Nausea, Vomiting; No Abdominal Pain; Diarrhea; No Constipation, No Melena; Hematochezia; No Other Genitourinary: No Dysuria, No Frequency, No Incontinence, No Hematuria, No Retention, No Other Musculoskeletal: No other, No neck pain, No shoulder pain, No arm pain, No back pain, No hand pain, No leg pain, No foot pain Skin: No Rash, No Lesions, No Jaundice, No Bruising, No Other Objective Vitals Vital Signs Date Time Temp Pulse Resp B/P (MAP) Pulse Ox O2 Delivery O2 Flow Rate FiO2 11/27/24 08:05 98.0 69 18 127/54 (78) 98 98.0 11/27/24 08:00 Room Air* 0 21 Intake/Output Intake and Output 11/27/24 07:00 Intake Total 1200 ml Balance 1200 ml Intake Oral 200 ml IV Total 1000 ml # Bowel Movements 1 General Appearance: Alert, Oriented X3, Cooperative Lungs: Clear to auscultation, Normal air movement Cardiovascular: Regular rate, Normal S1, Normal S2, No murmurs Abdomen: Normal bowel sounds, Soft, No tenderness Extremities: No edema Medications Current Medications Medications Dose Ordered Sig/David Route Start Time Stop Time Status Last Admin Dose Admin Pantoprazole Sodium 40 mg DAILY IV 11/27/24 10:00 11/27/24 09:08 40 MG Metronidazole 100 ml @ 100 mls/hr Q8HR IV 11/26/24 22:00 11/27/24 06:50 100 MLS/HR Ceftriaxone Sodium 50 ml @ 100 mls/hr DAILY@09 IV 11/27/24 09:00 11/27/24 09:09 100 MLS/HR Diagnostic Test (Pha) 1 strip ACHS 11/26/24 22:00 11/27/24 11:30 1 STRIP Insulin Human Regular ACHS SC 11/26/24 22:00 Dextrose 50 ml UD PRN IV 11/26/24 19:15 Sodium Chloride 10 ml Q8HR IV 11/26/24 22:00 11/27/24 06:00 10 ML Acetaminophen/ Hydrocodone Bitart 1 tab Q4HP PRN PO 11/26/24 19:15 11/26/24 22:56 1 TAB Ondansetron HCl 4 mg Q4HP PRN IV 11/26/24 19:15 11/26/24 22:56 4 MG Docusate Sodium 100 mg BIDPRN PRN PO 11/26/24 19:15 Acetaminophen 650 mg Q6HP PRN PO 11/26/24 19:15 Nitroglycerin 0.4 mg Q5MINP PRN SL 11/26/24 21:00 Morphine Sulfate 2 mg Q30M PRN IV 11/26/24 21:00 11/26/24 22:55 2 MG Laboratory Results Laboratory Tests 11/27/24 05:53 Chemistry Test 11/27/24 05:53 Albumin 4.4 g/dL (3.2-4.8) Calcium Level 10.0 mg/dL (8.7-10.4) Total Protein 6.5 g/dL (5.7-8.2) LFT Test 11/27/24 05:53 Alanine Aminotransferase (ALT) 19 U/L (7-40) Alkaline Phosphatase 107 U/L (46-116) Aspartate Amino Transferase (AST) 19 U/L (13-40) Total Bilirubin 0.9 mg/dL (0.2-1.0) Urinalysis Test 11/26/24 11:06 Urine Color Colorless (Yellow) Urine Clarity Clear (Clear) Urine pH 5.0 (5.0-9.0) Urine Specific [place] 1.006 (1.001-1.035) Urine Protein Negative (Negative) Urine Ketones Trace (Negative) Urine Blood Negative /uL (Negative) Urine Nitrite Negative (Negative) Urine Bilirubin Negative (Negative) Urine Urobilinogen Normal mg/dL (Negative) Urine Leukocyte Esterase Negative /uL (Negative) Urine RBC None seen /hpf (0 - 4) Urine Microscopic WBC < 1 /HPF (0-5) Urine Squamous Epithelial Cells Few /hpf (<5) Urine Bacteria None seen /hpf (None Seen) Urine Glucose Normal mg/dL (Normal) Assessment/Plan Assessment/Plan Acute diverticulitis Rule out C diff infection Pulmonary nodules rule out malignancy Right breast nodule rule out malignancy History of lung cancer per patient History of vulvar cancer status post surgery many years ago Type 2 diabetes Hypertension GERD Positive blood in his stools Hypokalemia Plan IV antibiotics with Rocephin and Flagyl Clear liquid diet Pulmonary consultation regarding pulmonary nodules Get the stool sample for C diff Full code Advance directives discussed for 20 minute Plan discussed with: Patient Date of Service: Nov 27, 2024 Billing Provider: DAVE SILVA MD Common Visit Codes: [id number] INP/OBS CARE(HIGH) Secondary Visit Codes: [id number] CARE PLAN 30 MINUTES DAVE SILVA MD Nov 27, 2024 12:47
--- NOTE | 2024-11-27 14:53 | DVHINCON2 ---
Date of service: Nov 27, [address] carr Reason for Consultation pulm nodule History of Present Illness pt is an 79 yo female, h/o dm, htn, vulval cancer, previously treated. Presented with abd complaints, gen peain, tenderness and diarrhea. Pt found to have multiple pulm nodules. She is monitored by a [facility] in [place]. no respiratory complaints. Family History: Family history: Cardiovascular disease Family history: Diabetes mellitus Family history: Hypertension Allergies: Coded Allergies: Sulfa Antibiotics (Verified Allergy, Unknown, 10/01/15) Home Meds Active Scripts Metronidazole (Flagyl) 500 Mg Tab, 1 TAB PO BID, #14 TAB Prov:DAVE CARR MD 11/28/24 Ciprofloxacin Hcl (Cipro) 500 Mg Tab, 1 TAB PO BID, #14 TAB Prov:DAVE CARR MD 11/28/24 Phenazopyridine HCl (Azo Urinary Pain Relief M) 99.5 Mg Tab, 99.5 MG PO BID for 3 Days, #6 TAB Prov:RICH DHILLON MD 12/17/23 Nitrofurantoin Monohydrate Mac (Macrobid) 100 Mg Cap, 100 MG PO BID for 10 Days, #20 CAP Prov:RICH DHILLON MD 12/17/23 Reported Medications Metformin Hydrochloride (Metformin Hcl) 500 Mg Tab, 1 TAB PO BID, #60 TAB 3 Refills 09/30/15 Discontinued Reported Medications Omeprazole (PRILOSEC) 20 Mg Cap, 1 CAP PO DAILY, #90 CAP 1 Refill 09/30/15 Current Medications Current Medications Medications (Trade) Dose Ordered Sig/David Route PRN Reason Start Time Stop Time Status Last Admin Pantoprazole Sodium (Protonix) 40 mg DAILY IV 11/27/24 10:00 11/27/24 09:08 Metronidazole 100 ml @ 100 mls/hr Q8HR IV 11/26/24 22:00 11/27/24 06:50 Ceftriaxone Sodium 50 ml @ 100 mls/hr DAILY@09 IV 11/27/24 09:00 11/27/24 09:09 Diagnostic Test (Pha) (Accu-Chek Comfort Curve T) 1 strip ACHS 11/26/24 22:00 11/27/24 11:30 Insulin Human Regular (InsuLIN R) ACHS SC 11/26/24 22:00 Dextrose 50 ml UD PRN IV Blood Sugar LESS THAN 60 11/26/24 19:15 Sodium Chloride (Saline Lock Ns) 10 ml Q8HR IV 11/26/24 22:00 11/27/24 14:08 Acetaminophen/ Hydrocodone Bitart ([place] 5/325MG Tab) 1 tab Q4HP PRN PO MODERATE PAIN (4-6 PAIN SCALE) 11/26/24 19:15 11/26/24 22:56 Ondansetron HCl (Zofran) 4 mg Q4HP PRN IV NAUSEA / VOMITING 11/26/24 19:15 11/26/24 22:56 Docusate Sodium (Colace Capsule) 100 mg BIDPRN PRN PO FOR CONSTIPATION 11/26/24 19:15 Acetaminophen (Tylenol Tablet) 650 mg Q6HP PRN PO PAIN SCALE 1-3 OR TEMP>100.4 11/26/24 19:15 Nitroglycerin (Ntrostat Sublingual) 0.4 mg Q5MINP PRN SL FOR CHEST PAIN 11/26/24 21:00 Morphine Sulfate 2 mg Q30M PRN IV FOR CHEST PAIN 11/26/24 21:00 11/26/24 22:55 Review of Systems Constitutional: no fever, chill, weight loss HEENT: no eye pain, no hearing loss, no oral lesion, no scleral icterus Heart: no chest pain, no chest pressure Lung: no cough, no dyspnea with exertion : no pain with urination, normal appearing urine Musculoskeletal: no joint pain, no muscle pain Neurological: no seizure, no loss of sensation, no weakness in extremities Pysch: no depression, no anxiety Derm: no rash, no jaundice Vital Signs Vital Signs Date Time Temp Pulse Resp B/P (MAP) Pulse Ox O2 Delivery O2 Flow Rate FiO2 11/27/24 12:10 98.3 64 17 117/54 (75) 96 98.3 11/27/24 08:00 Room Air* 0 21 Labs/Diagnostic Data Labs Test 11/27/24 07:03 11/27/24 05:53 11/26/24 18:54 11/26/24 11:06 Range/Units POC Glucose 99 70-106 mg/dl White Blood Count 8.4 4.4-10.8 10^3/uL Red Blood Count 4.83 4.0-5.20 10^6/uL Hemoglobin 15.2 12.2-16.2 g/dL Hematocrit 45.4 36.0-46.0 % Mean Corpuscular Volume 93.8 80.0-100.0 fL Mean Corpuscular Hemoglobin 31.5 28.0-32.0 pg Mean Corpuscular Hemoglobin Concent 33.5 32.0-36.0 g/dL Red Cell Distribution Width 14.2 11.8-14.3 % Platelet Count 197 140-450 10^3/uL Mean Platelet Volume 9.5 6.9-10.8 fL Neutrophils (%) (Auto) 68.7 37.0-80.0 % Lymphocytes (%) (Auto) 18.9 10.0-50.0 % Monocytes (%) (Auto) 8.5 0.0-12.0 % Eosinophils (%) (Auto) 3.7 0.0-7.0 % Basophils (%) (Auto) 0.2 0.0-2.0 % Neutrophils # (Auto) 5.8 1.6-8.6 10 ^3/uL Lymphocytes # (Auto) 1.6 0.4-5.4 10 ^3/uL Monocytes # (Auto) 0.7 0-1.3 10 ^3/uL Eosinophils # (Auto) 0.3 0-0.8 10 ^3/uL Basophils # (Auto) 0 0-0.2 10 ^3/uL Nucleated Red Blood Cells 0.1 % Sodium Level 142 136-145 mmol/L Potassium Level 3.8 3.5-5.1 mmol/L Chloride Level 110 H 98-107 mmol/L Carbon Dioxide Level 24 20-31 mmol/L Anion Gap 8 5-15 Blood Urea Nitrogen 11 9-23 mg/dL Creatinine 0.97 0.550-1.02 mg/dL Glomerular Filtration Rate Calc 59 >90 mL/min BUN/Creatinine Ratio 11.3 10.0-20.0 Serum Glucose 105 74-106 mg/dL Calcium Level 10.0 8.7-10.4 mg/dL Total Bilirubin 0.9 0.2-1.0 mg/dL Aspartate Amino Transferase (AST) 19 13-40 U/L Alanine Aminotransferase (ALT) 19 7-40 U/L Alkaline Phosphatase 107 46-116 U/L Total Protein 6.5 5.7-8.2 g/dL Albumin 4.4 3.2-4.8 g/dL Stool Occult Blood Positive Negative Stool Occult Blood Sample #3 Negative Urine Color Colorless Yellow Urine Clarity Clear Clear Urine pH 5.0 5.0-9.0 Urine Specific [place] 1.006 1.001-1.035 Urine Protein Negative Negative Urine Ketones Trace Negative Urine Blood Negative Negative /uL Urine Nitrite Negative Negative Urine Bilirubin Negative Negative Urine Urobilinogen Normal Negative mg/dL Urine Leukocyte Esterase Negative Negative /uL Urine RBC None seen 0 - 4 /hpf Urine Microscopic WBC < 1 0-5 /HPF Urine Squamous Epithelial Cells Few <5 /hpf Urine Bacteria None seen None Seen /hpf Urine Glucose Normal Normal mg/dL Test 11/26/24 09:23 Range/Units Lactic Acid Level 1.3 0.4-2.0 mmol/L Lipase 24 12-53 U/L Assessment Pulm nodules abd pain h/o malignancy pt seen and examined no distress CXR reviewed management from pulm standpoint nodules might be non-specific under follow up by regular [facility] with regular CT scan will defer work up at this point IVF/Abx for gi symptoms symptomatic management Plan discussed with: Patient NELA MURDOCK MD Nov 27, 2024 14:53
[2024-11-28 05:00] VITALS: BP 137/60; PULSE 68; RESP 20; TEMP 97.6; O2SAT 93
[2024-11-28 07:41] LABS: Alanine Aminotransferase 15 U/L (7-40); Alkaline Phosphatase 73 U/L (46-116); Anion Gap 55 (5-15); Aspartate Aminotransferase 15 U/L (13-40); BUN/Creatinine Ratio 9.1 (10.0-20.0); Bilirubin, Total 0.5 mg/dL (0.2-1.0); Magnesium 2.2 mg/dL (1.6-2.6)
[2024-11-28 08:00] VITALS: PULSE 73
[2024-11-28 08:03] LABS: Albumin 3.1 g/dL (3.2-4.8); Blood Urea Nitrogen 7 mg/dL (9-23); Calcium 7.1 mg/dL (8.7-10.4); Carbon Dioxide 16 mmol/L (20-31); Chloride 88 mmol/L (98-107); Glucose 113 mg/dL (74-106); Potassium 3.5 mmol/L (3.5-5.1); Sodium 159 mmol/L (136-145); Total Protein 4.6 g/dL (5.7-8.2)
[2024-11-28 08:10] VITALS: PULSE 67; RESP 20; O2SAT 96
[2024-11-28 09:00] VITALS: BP 124/61; PULSE 67; RESP 20; TEMP 98.1; O2SAT 96
[2024-11-28 11:53] LABS: Chloride 107 mmol/L (98-107); Potassium 4.3 mmol/L (3.5-5.1); Sodium 140 mmol/L (136-145)
[2024-11-28 11:54] LABS: Anion Gap 6 (5-15); Calcium 9.8 mg/dL (8.7-10.4); Carbon Dioxide 27 mmol/L (20-31)
[2024-11-28 11:59] LABS: BUN/Creatinine Ratio 9.1 (10.0-20.0); Glucose 102 mg/dL (74-106)
[2024-11-28 12:00] LABS: Blood Urea Nitrogen 9 mg/dL (9-23)
[2024-11-28] MEDS ORDERED: CIPR-173 PO (12:11)
[2024-11-28] MEDS ORDERED: METR-344 PO (12:11)
--- NOTE | 2024-11-28 12:15 | DVHDS2 ---
Discharge Summary Date of Admission Nov 26, 2024 at 20:52 Date of Discharge: Nov 28, 2024 Labs/Diagnostic Data: Laboratory Results Test 11/28/24 10:45 11/28/24 06:42 11/27/24 17:47 11/27/24 05:53 Sodium Level 140 mmol/L (136-145) Potassium Level 4.3 mmol/L (3.5-5.1) Chloride Level 107 mmol/L (98-107) Carbon Dioxide Level 27 mmol/L (20-31) Anion Gap 6 (5-15) Blood Urea Nitrogen 9 mg/dL (9-23) Creatinine 0.99 mg/dL (0.550-1.02) Glomerular Filtration Rate Calc 58 mL/min (>90) BUN/Creatinine Ratio 9.1 (10.0-20.0) Serum Glucose 102 mg/dL (74-106) Calcium Level 9.8 mg/dL (8.7-10.4) Magnesium Level 2.2 mg/dL (1.6-2.6) Total Bilirubin 0.5 mg/dL (0.2-1.0) Aspartate Amino Transferase (AST) 15 U/L (13-40) Alanine Aminotransferase (ALT) 15 U/L (7-40) Alkaline Phosphatase 73 U/L (46-116) Total Protein 4.6 g/dL (5.7-8.2) Albumin 3.1 g/dL (3.2-4.8) POC Glucose 111 mg/dl (70-106) White Blood Count 8.4 10^3/uL (4.4-10.8) Red Blood Count 4.83 10^6/uL (4.0-5.20) Hemoglobin 15.2 g/dL (12.2-16.2) Hematocrit 45.4 % (36.0-46.0) Mean Corpuscular Volume 93.8 fL (80.0-100.0) Mean Corpuscular Hemoglobin 31.5 pg (28.0-32.0) Mean Corpuscular Hemoglobin Concent 33.5 g/dL (32.0-36.0) Red Cell Distribution Width 14.2 % (11.8-14.3) Platelet Count 197 10^3/uL (140-450) Mean Platelet Volume 9.5 fL (6.9-10.8) Neutrophils (%) (Auto) 68.7 % (37.0-80.0) Lymphocytes (%) (Auto) 18.9 % (10.0-50.0) Monocytes (%) (Auto) 8.5 % (0.0-12.0) Eosinophils (%) (Auto) 3.7 % (0.0-7.0) Basophils (%) (Auto) 0.2 % (0.0-2.0) Neutrophils # (Auto) 5.8 10 ^3/uL (1.6-8.6) Lymphocytes # (Auto) 1.6 10 ^3/uL (0.4-5.4) Monocytes # (Auto) 0.7 10 ^3/uL (0-1.3) Eosinophils # (Auto) 0.3 10 ^3/uL (0-0.8) Basophils # (Auto) 0 10 ^3/uL (0-0.2) Nucleated Red Blood Cells 0.1 % Test 11/26/24 18:54 11/26/24 11:06 11/26/24 09:23 Stool Occult Blood Positive (Negative) Stool Occult Blood Sample #3 (Negative) Urine Color Colorless (Yellow) Urine Clarity Clear (Clear) Urine pH 5.0 (5.0-9.0) Urine Specific [place] 1.006 (1.001-1.035) Urine Protein Negative (Negative) Urine Ketones Trace (Negative) Urine Blood Negative /uL (Negative) Urine Nitrite Negative (Negative) Urine Bilirubin Negative (Negative) Urine Urobilinogen Normal mg/dL (Negative) Urine Leukocyte Esterase Negative /uL (Negative) Urine RBC None seen /hpf (0 - 4) Urine Microscopic WBC < 1 /HPF (0-5) Urine Squamous Epithelial Cells Few /hpf (<5) Urine Bacteria None seen /hpf (None Seen) Urine Glucose Normal mg/dL (Normal) Lactic Acid Level 1.3 mmol/L (0.4-2.0) Lipase 24 U/L (12-53) Other Laboratory Tests 11/28/24 10:45 11/27/24 05:53 Brief Hx & Hospital Course: Final diagnoses: Acute diverticulitis Rule out C diff infection Pulmonary nodules rule out malignancy Right breast nodule rule out malignancy History of lung cancer per patient History of vulvar cancer status post surgery many years ago Type 2 diabetes Hypertension GERD Positive blood in his stools Hypokalemia 79-year-old female came with abdominal pain and diarrhea and was found to have acute diverticulitis She was treated with IV antibiotics and she improved significantly Her diarrhea improved We tried to do a stool sample for C diff however she had no diarrhea anymore She is asymptomatic now She also says that she has a history of lung cancer and she follows with her oncologist downhill, she says however she says she never had a biopsy done The patient is stable for discharge She can be discharged on oral antibiotics for the diverticulitis Follow up with her primary care physician and with her oncologist as soon as possible and resume the home medications Condition at Discharge: Stable Final Diagnosis/Problems List Acute diverticulitis Rule out C diff infection Pulmonary nodules rule out malignancy Right breast nodule rule out malignancy History of lung cancer per patient History of vulvar cancer status post surgery many years ago Type 2 diabetes Hypertension GERD Positive blood in his stools Hypokalemia Discharge Disposition: Home SNF Discharge Will this Physician continue t: No Discharge Statement: "Patient was advised to return to the ER or call 911 if any headaches, dizziness, shortness of breath, chest pain, abdominal pain, bleeding, fevers, or worsening of medical condition. Patient was counseled about treatment plan, medications, possible side effects, patientverbalized understanding. All questions were answered to the best of my ability. This discharge took greater then 30 minutes in planning, reviewing documentation, counseling the patient, and discussing with other team members." ASSESSMENT ASSESSMENT Assessment Date of Service: Nov 28, 2024 Billing Provider: DAVE SILVA MD Common Visit Codes: 68615-UEE/OBS DISCH DAY >30min DAVE SILVA MD Nov 28, 2024 12:15
--- NOTE | 2024-11-28 12:34 | DVHPN2 ---
Progress Note - Dictate Date Seen: Nov 28, 2024 Medical Necessity Reason Pt with a Central, PICC or Fol: No vital signs Vital Sign Date Time Temp Pulse Resp B/P (MAP) Pulse Ox O2 Delivery O2 Flow Rate FiO2 11/28/24 09:00 98.1 67 20 124/61 (82) 96 98.1 11/27/24 19:54 Room Air* 0 21 Total Intake and Output 11/27/24 11/27/24 11/28/24 15:00 23:00 07:00 Intake Total 1350 ml 808 ml 840 ml Balance 1350 ml 808 ml 840 ml medications Current Medications Medications Dose Ordered Sig/David Route Start Time Stop Time Status Last Admin Dose Admin Pantoprazole Sodium 40 mg DAILY IV 11/27/24 10:00 11/28/24 09:10 40 MG Metronidazole 100 ml @ 100 mls/hr Q8HR IV 11/26/24 22:00 11/28/24 05:26 100 MLS/HR Ceftriaxone Sodium 50 ml @ 100 mls/hr DAILY@09 IV 11/27/24 09:00 11/28/24 09:04 100 MLS/HR Diagnostic Test (Pha) 1 strip ACHS 11/26/24 22:00 11/28/24 11:43 1 STRIP Insulin Human Regular ACHS SC 11/26/24 22:00 11/28/24 11:52 2 UNITS Dextrose 50 ml UD PRN IV 11/26/24 19:15 Sodium Chloride 10 ml Q8HR IV 11/26/24 22:00 11/28/24 05:36 10 ML Acetaminophen/ Hydrocodone Bitart 1 tab Q4HP PRN PO 11/26/24 19:15 11/26/24 22:56 1 TAB Ondansetron HCl 4 mg Q4HP PRN IV 11/26/24 19:15 11/26/24 22:56 4 MG Docusate Sodium 100 mg BIDPRN PRN PO 11/26/24 19:15 Acetaminophen 650 mg Q6HP PRN PO 11/26/24 19:15 Nitroglycerin 0.4 mg Q5MINP PRN SL 11/26/24 21:00 Morphine Sulfate 2 mg Q30M PRN IV 11/26/24 21:00 11/26/24 22:55 2 MG laboratory and microbiology Laboratory Tests 11/28/24 10:45 11/27/24 05:53 Test 11/28/24 10:45 Range/Units Serum Glucose 102 74-106 mg/dL Assessment/Plan Pulm nodules abd pain h/o malignancy pt seen and examined no distress CXR reviewed management from pulm standpoint nodules might be non-specific under follow up by regular Mechanic Assistant with regular CT scan will defer work up at this point ok to dc Plan discussed with: Patient NEAL MURDOCK MD Nov 28, 2024 12:34
[2024-11-28 13:00] VITALS: BP 129/74; PULSE 78; RESP 20; TEMP 97.6; O2SAT 96
[2024-11-28 13:26] VITALS: BP 124/61; PULSE 67; RESP 20; TEMP 98.1; O2SAT 96
== END 2024-11-28 15:00 | disposition home or self-care (01) | DRG 379 ==
LOC: ER 07:56 → TELE-CENTR 20:52 → TELE-WESTW 20:53
PROVIDERS: ADMIT Nurse Practitioner Family; ATTEND Nurse Practitioner Family
DX: K57.33 Diverticulitis of large intestine without perforation or abscess with bleeding (principal); E87.6 Hypokalemia; I10 Essential (primary) hypertension; K21.9 Gastro-esophageal reflux disease without esophagitis; B96.89 Other specified bacterial agents as the cause of diseases classified elsewhere; E11.9 Type 2 diabetes mellitus without complications; Z90.49 Acquired absence of other specified parts of digestive tract; Z90.710 Acquired absence of both cervix and uterus; Z83.3 Family history of diabetes mellitus; Z82.49 Family history of ischemic heart disease and other diseases of the circulatory system; Z85.118 Personal history of other malignant neoplasm of bronchus and lung; Z85.44 Personal history of malignant neoplasm of other female genital organs; Z88.2 Allergy status to sulfonamides; Z79.84 Long term (current) use of oral hypoglycemic drugs; Z79.899 Other long term (current) drug therapy
CPT/HCPCS: 36415; 71045; 74176; 80048; 80053; 81001; 82270; 82962; 83605; 83690; 83735; 85025; 93005; 96361; 96365; G0378; J1815; J2405; J2470; J3490

== ENCOUNTER 2025-04-08 12:38 | Emergency (ER) | payer OTHER ==
[~2025-04-08] VITALS: Ht 157.5 cm; Wt 77.2 kg
[~2025-04-08 12:38] MED LIST changes: +CIPR-173 PO; +METR-344 PO; -OMEP20CA74 PO
[2025-04-08 12:55] VITALS: BP 155/73; PULSE 90; RESP 13; TEMP 97.9; O2SAT 95
--- NOTE | 2025-04-08 13:10 | ED.PDOC ---
History of Present Illness HPI Comments 79-year-old female presents with a chief complaint of HTN. Patient states that she checked her BP at home and it was 171/101 and tried to go see her primary doctor, but was not able to be seen. Patient's BP in triage was 155/73. Patient has no symptoms at this time. Patient is alert and oriented x 4. Chief Complaint: High Blood Pressure Time Seen by MD: 12:53 Primary Care Provider: KEIRA Carlos Notes: Medications, Allergies Allergies: Coded Allergies: Sulfa Antibiotics (Verified Allergy, Unknown, 10/01/15) Home Meds Active Scripts Metronidazole (Flagyl) 500 Mg Tab, 1 TAB PO BID, #14 TAB Prov:DAVE SILVA MD 11/28/24 Ciprofloxacin Hcl (Cipro) 500 Mg Tab, 1 TAB PO BID, #14 TAB Prov:DAVE SILVA MD 11/28/24 Phenazopyridine HCl (Azo Urinary Pain Relief M) 99.5 Mg Tab, 99.5 MG PO BID for 3 Days, #6 TAB Prov:RICH DHILLON MD 12/17/23 Nitrofurantoin Monohydrate Mac (Macrobid) 100 Mg Cap, 100 MG PO BID for 10 Days, #20 CAP Prov:RICH DHILLON MD 12/17/23 Reported Medications Metformin Hydrochloride (Metformin Hcl) 500 Mg Tab, 1 TAB PO BID, #60 TAB 3 Refills 09/30/15 Information Source: Patient Mode of Arrival: Ambulatory Severity: Moderate Timing: Minutes Duration: Since onset Prehospital treatment: None Past Medical History PAST MEDICAL HISTORY: Cancer, DM, GERD, HTN Surgical History: Cholecystectomy, Hysterectomy 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 History Family History Family History: No family hx of DM, No family hx of HTN Social History Smoker: Non-Smoker Alcohol: Rarely Drugs: Denies Drug Use Lives In: Home Constitutional: denies: chills, diaphoresis, fatigue, fever, malaise, sweats, weakness, others EENTM: denies: blurred vision, double vision, ear bleeding, ear discharge, ear drainage, ear pain, ear ringing, eye pain, eye redness, hearing loss, mouth pain, mouth swelling, nasal discharge, nose bleeding, nose congestion, nose pain , photophobia, tearing, throat pain, throat swelling, voice changes, others Respiratory: denies: cough, hemoptysis, orthopnea, SOB at rest, shortness of breath, SOB with excertion, stridor, wheezing, others Cardiovascular: denies: chest pain, dizzy spells, diaphoresis, Dyspnea on exertion, edema, irregular heart beat, left arm pain, lightheadedness, palpitations, PND, syncope, others Gastrointestinal: denies: abdomen distended, abdominal pain, blood streaked bowels, constipated, diarrhea, dysphagia, difficulty swallowing, hematemesis, melena, nausea, poor appetite, poor fluid intake, rectal bleeding, rectal pain, vomiting, others Genitourinary: denies: abnormal vagina bleeding, burning, dyspareunia, dysuria, flank pain, frequency, hematuria, incontinence, pain, , vagina discharge, urgency, others Neurological: denies: dizziness, fainting, headache, left sided numbness, left sided weakness, numbness, paresthesia, pre-existing deficit, right sided numbness, right sided weakness, seizure, speech problems, tingling, tremors, weakness, others Musculoskeletal: denies: back pain, gout, joint pain, joint swelling, muscle pain, muscle stiffness, neck pain, others Integumetry: denies: bruises, change in color, change in hair/nails, dryness, laceration, lesions, lumps, rash, wounds, others Allergic/Immunocompromised: denies: Difficulty Healing, Frequent Infections, Hives, Itching, others Hematologic/Lymphatic: denies: anemia, blood clots, easy bleeding, easy bruising, swollen glands, others Endocrine: denies: excessive hunger, excessive sweating, excessive thirst, excessive urination, flushing, intolerance to cold, intolerance to heat, unexplained weight gain, unexplained weight loss, others Psychiatric: denies: anxiety, bipolar disorder, depression, hopeless, panic disorder, schizophrenia, sleepless, suicidal, others All Other Systems: Reviewed and Negative ( PER HPI) Physical Exam General Appearance: Moderate Distress, Normal HEENT: Normal ENT Inspection, Pharynx Normal, TMs Normal Neck: Full Range of Motion, Non-Tender, Normal, Normal Inspection Respiratory: Chest Non-Tender, Lungs Clear, No Accessory Muscle Use, No Respiratory Distress, Normal Breath Sounds Cardiovascular: No Edema, No JVD, No Murmur, No Gallop, Normal Peripheral Pulses, Regular Rate/Rhythm Breast Exam: Deferred Gastrointestinal: No Organomegaly, Non Tender, No Pulsatile Mass, Normal Bowel Sounds, Soft Genitalia: Deferred Pelvic: Deferred Rectal: Deferred Extremities: No calf tenderness, Normal capillary refill, Normal inspection, Normal range of motion, Non-tender, No pedal edema (Chronic) Musculoskeletal : Apperance: Normal Neurologic: Alert, 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 Was a procedure done?: No Differential Dx Considerations may include: Hypertension X-Ray, Labs, Meds, VS Vital Signs Date Time Temp Pulse Resp B/P (MAP) Pulse Ox O2 Delivery O2 Flow Rate FiO2 04/08/25 12:55 97.9 90 13 155/73 (100) 95 97.9 Patient alert. Came in because of high blood pressure. Denies any symptoms. Vitals stable. Answering questions. Blood pressure was appropriate on arrival. Explained to the patient. Insists on leaving. Saturation pristine on room air. No leg swelling. No shortness a breath. No chest pain. Did not have to give any medication for her blood pressure. Was told to follow up with her primary care physician. Was told to come back if there is any problem. Time of 1ST Reevaluation: 13:23 Reevaluation 1ST: Improved Patient Education/Counseling: Diagnosis, Treatment, Need For Follow Up Family Education/Counseling: No Family Present SEPSIS Sepsis Screen Vital Signs Date Time Temp Pulse Resp B/P (MAP) Pulse Ox O2 Delivery O2 Flow Rate FiO2 04/08/25 12:55 97.9 90 13 155/73 (100) 95 97.9 Departure 1 Departure Time of Disposition: 13:21 Impression: Primary Impression: HTN (hypertension) Qualified Codes: I10 - Essential (primary) hypertension Disposition: 01 HOME / SELF CARE / HOMELESS Condition: Good Discharged With: Self Critical Care Note Critical Care Time?: No Stability Stability form required: No Heart Score Heart Score: Heart Score Response (Comments) Value History N/A 0 EKG N/A 0 Age N/A 0 Risk Factors N/A 0 Troponin N/A 0 Total 0 I personally scribed for MICHELLE SANDHU MD ([email or web address]) on 04/08/25 at 13:10. Electronically submitted by Anand Rogers ([email or web address]). MICHELLE SANDHU MD Apr 08, 2025 13:10
== END 2025-04-08 14:54 | disposition home or self-care (01) ==
LOC: ER 12:38
DX: I10 Essential (primary) hypertension (principal); F10.90 Alcohol use, unspecified, uncomplicated; E11.9 Type 2 diabetes mellitus without complications; K21.9 Gastro-esophageal reflux disease without esophagitis; Z90.710 Acquired absence of both cervix and uterus; Z90.49 Acquired absence of other specified parts of digestive tract; Z88.2 Allergy status to sulfonamides; Z79.84 Long term (current) use of oral hypoglycemic drugs; Z79.899 Other long term (current) drug therapy; Y90.9 Presence of alcohol in blood, level not specified

== ENCOUNTER 2025-08-19 08:11 | Emergency (ER) | payer OTHER ==
[~2025-08-19] VITALS: Ht 157.5 cm; Wt 80.6 kg
--- NOTE | 2025-08-19 08:24 | ED.PDOC ---
General HPI Comments 80-year-old female presents here with dysuria increased urinary frequency and urinary incontinence that she has been having for the last 2-1/2 weeks. She called her PCP who called in a prescription for Macrobid. She finished a prescription for Macrobid x7 days but states the symptoms did not resolve. She went to her PCP yesterday who checked her urine and the urine analysis was negative and sent to the ER. At this time she continues to report urinary frequency dysuria and some urinary incontinence. She reports positive chills. No fevers. She does report upper back pain. 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 She also reports dizziness. She states she has had no nausea no vomiting no diarrhea. She states he has been eating and drinking well. She does however state that she has been in significant mental stress as her nephew of 35 years of age just had a large stroke and they currently took him off of life support. She states he has been in significant distress secondary to that. Chief Complaint: Urinary Time Seen by MD: 08:20 Primary Care Provider: KEIRA Carols notes: Nurses Notes, Medications, Allergies Allergies: Coded Allergies: Sulfa Antibiotics (Verified Allergy, Unknown, 10/01/15) Home Meds Active Scripts Phenazopyridine HCl (Phenazopyridine Hydrochlo) 200 Mg Tab, 200 MG PO BID for 3 Days, #6 TAB Prov:CARLENE FONSECA MD 08/19/25 Cephalexin (KEFLEX CAPSULE) 250 Mg Cp, 500 MG PO Q12HR for 10 Days, #40 TAB Prov:CARLENE FONSECA MD 08/19/25 Metronidazole (Flagyl) 500 Mg Tab, 1 TAB PO BID, #14 TAB Prov:DAVE SILVA MD 11/28/24 Ciprofloxacin Hcl (Cipro) 500 Mg Tab, 1 TAB PO BID, #14 TAB Prov:DAVE SILVA MD 11/28/24 Phenazopyridine HCl (Azo Urinary Pain Relief M) 99.5 Mg Tab, 99.5 MG PO BID for 3 Days, #6 TAB Prov:RICH DHILLON MD 12/17/23 Nitrofurantoin Monohydrate Mac (Macrobid) 100 Mg Cap, 100 MG PO BID for 10 Days, #20 CAP Prov:RICH DHILLON MD 12/17/23 Reported Medications Metformin Hydrochloride (Metformin Hcl) 500 Mg Tab, 1 TAB PO BID, #60 TAB 3 Refills 09/30/15 Mode of Arrival: Ambulatory associated signs and symptoms: Flank Pain, Frequency Past Medical History PAST MEDICAL HISTORY: Cancer, DM, GERD, HTN Surgical History: Cholecystectomy, Hysterectomy [employer]OR History: No Pertinent [employer]OR History Family History Family History: No family hx of DM, No family hx of HTN Social History Smoker: Non-Smoker Alcohol: Rarely Drugs: Denies Drug Use Lives In: Home Constitutional: denies: chills, diaphoresis, fatigue, fever, malaise, sweats, weakness, others EENTM: denies: blurred vision, double vision, ear bleeding, ear discharge, ear drainage, ear pain, ear ringing, eye pain, eye redness, hearing loss, mouth pain, mouth swelling, nasal discharge, nose bleeding, nose congestion, nose pain, photophobia, tearing, throat pain, throat swelling, voice changes, others Respiratory: denies: cough, hemoptysis, orthopnea, SOB at rest, shortness of breath, SOB with excertion, stridor, wheezing, others Cardiovascular: denies: chest pain, dizzy spells, diaphoresis, Dyspnea on exertion, edema, irregular heart beat, left arm pain, lightheadedness, palpitations, PND, syncope, others Gastrointestinal: denies: abdomen distended, abdominal pain, blood streaked bowels, constipated, diarrhea, dysphagia, difficulty swallowing, hematemesis, melena, nausea, poor appetite, poor fluid intake, rectal bleeding, rectal pain, vomiting, others Genitourinary: reports: burning, dysuria, flank pain, frequency; denies: abnormal vagina bleeding, dyspareunia, hematuria, incontinence, pain, , vagina discharge, urgency, others Neurological: denies: dizziness, fainting, headache, left sided numbness, left sided weakness, numbness, paresthesia, pre-existing deficit, right sided numbness, right sided weakness, seizure, speech problems, tingling, tremors, weakness, others Musculoskeletal: denies: back pain, gout, joint pain, joint swelling, muscle pa in, muscle stiffness, neck pain, others Integumetry: denies: bruises, change in color, change in hair/nails, dryness, laceration, lesions, lumps, rash, wounds, others Allergic/Immunocompromised: denies: Difficulty Healing, Frequent Infections, Hives, Itching, others Hematologic/Lymphatic: denies: anemia, blood clots, easy bleeding, easy bruising, swollen glands, others Endocrine: denies: excessive hunger, excessive sweating, excessive thirst, excessive urination, flushing, intolerance to cold, intolerance to heat, unexplained weight gain, unexplained weight loss, others Psychiatric: denies: anxiety, bipolar disorder, depression, hopeless, panic disorder, schizophrenia, sleepless, suicidal, others All Other Systems: Reviewed and Negative Physical Exam General Appearance: Mild Distress, Normal, Other (Appears stressed) HEENT: Normal ENT Inspection, Pharynx Normal, TMs Normal Neck: Full Range of Motion, Non-Tender, Normal, Normal Inspection Respiratory: Chest Non-Tender, Lungs Clear, No Accessory Muscle Use, No Respiratory Distress, Normal Breath Sounds Cardiovascular: No Edema, No JVD, No Murmur, No Gallop, Normal Peripheral Pulses, Regular Rate/Rhythm Breast Exam: Deferred Gastrointestinal: No Organomegaly, Non Tender, No Pulsatile Mass, Normal Bowel Sounds, Soft, Other (Nontender abdomen. No CVA tenderness bilaterally.) Genitalia: Deferred Pelvic: Deferred Rectal: Deferred Extremities: No calf tenderness, Normal capillary refill, Normal inspection, Normal range of motion, Non-tender, No pedal edema Musculoskeletal : Apperance: Normal Neurologic: Alert, No Motor Deficits, Normal Affect, Normal Mood, No Sensory Deficits Cerebellar Function: Normal Reflexes: Normal Skin: Dry, Normal Color, Warm Lymphatic: No Adenopathy Was a procedure done? Was a procedure done?: No EKG EKG : Comments Rate of 71 sinus rhythm no significant ST changes. Differential Diagnosis Kidney stone (Female): AAA, Pyelonephritis, Renal failure, Strain, Urolithiasis Kidney stone (Male): N/A Penile/Scrotal: N/A Urinary Problem (Male): N/A Urinary Problem (Female): AAA, Pyelonephritis, Urinary retention, Urolithiasis, UTI X-Ray, Labs, Meds, VS Vital Signs Date Time Temp Pulse Resp B/P (MAP) Pulse Ox O2 Delivery O2 Flow Rate FiO2 08/19/25 11:27 97.7 65 16 142/73 (96) 98 97.7 08/19/25 11:27 65 16 98 Room Air 08/19/25 10:56 71 08/19/25 08:12 98.0 82 20 153/84 97 98.0 Lab Test 08/19/25 10:50 08/19/25 10:14 08/19/25 08:35 Range/Units Troponin I High Sensitivity 6 5 </=34 ng/L Urine Color Light-yellow Yellow Urine Clarity Clear Clear Urine pH 6.5 5.0-9.0 Urine Specific [place] 1.012 1.001-1.035 Urine Protein Negative Negative Urine Ketones Negative Negative Urine Blood Negative Negative /uL Urine Nitrite Negative Negative Urine Bilirubin Negative Negative Urine Urobilinogen Normal Negative mg/dL Urine Leukocyte Esterase Negative Negative /uL Urine RBC <1 0 - 4 /hpf Urine Microscopic WBC < 1 0-5 /HPF Urine Squamous Epithelial Cells Few <5 /hpf Urine Bacteria None seen None Seen /hpf Urine Glucose Normal Normal mg/dL White Blood Count 8.8 4.4-10.8 10^3/uL Red Blood Count 5.05 4.0-5.20 10^6/uL Hemoglobin 15.7 12.2-16.2 g/dL Hematocrit 46.8 H 36.0-46.0 % Mean Corpuscular Volume 92.7 80.0-100.0 fL Mean Corpuscular Hemoglobin 31.0 28.0-32.0 pg Mean Corpuscular Hemoglobin Concent 33.5 32.0-36.0 g/dL Red Cell Distribution Width 14.2 11.8-14.3 % Platelet Count 201 140-450 10^3/uL Mean Platelet Volume 9.8 6.9-10.8 fL Neutrophils (%) (Auto) 70.9 37.0-80.0 % Lymphocytes (%) (Auto) 20.8 10.0-50.0 % Monocytes (%) (Auto) 5.1 0.0-12.0 % Eosinophils (%) (Auto) 2.8 0.0-7.0 % Basophils (%) (Auto) 0.4 0.0-2.0 % Neutrophils # (Auto) 6.3 1.6-8.6 10 ^3/uL Lymphocytes # (Auto) 1.8 0.4-5.4 10 ^3/uL Monocytes # (Auto) 0.5 0-1.3 10 ^3/uL Eosinophils # (Auto) 0.2 0-0.8 10 ^3/uL Basophils # (Auto) 0 0-0.2 10 ^3/uL Nucleated Red Blood Cells 0.1 % Sodium Level 143 136-145 mmol/L Potassium Level 3.8 3.5-5.1 mmol/L Chloride Level 105 98-107 mmol/L Carbon Dioxide Level 30 20-31 mmol/L Anion Gap 8 5-15 Blood Urea Nitrogen 14 9-23 mg/dL Creatinine 0.99 0.550-1.02 mg/dL Glomerular Filtration Rate Calc 57 >90 mL/min BUN/Creatinine Ratio 14.1 10.0-20.0 Serum Glucose 111 H 74-106 mg/dL Calcium Level 9.6 8.7-10.4 mg/dL Current Medications Medications (Trade) Dose Ordered Sig/David Route Start Time Stop Time Status Last Admin Sodium Chloride 500 ml @ 500 mls/hr Q1H ONCE IV 08/19/25 10:30 08/19/25 11:29 DC 08/19/25 11:47 Ceftriaxone Sodium 50 ml @ 100 mls/hr ONCE ONCE IV 08/19/25 10:30 08/19/25 10:59 DC 08/19/25 11:47 Phenazopyridine HCl (Pyridium Tablet) 200 mg ONCE ONCE PO 08/19/25 10:30 08/19/25 10:31 DC 08/19/25 11:47 80-year-old female presents here with dysuria increased frequency and urinary incontinence. She denies any low back pain reports upper back pain near her shoulders only. Also reports positive dizziness. She has been treated outpatient with Macrobid but continues to have symptoms. She does have a history of frequent UTIs but states this is worse than normal. After finishing the Macrobid she did go to her PCP, who ran a UA which was negative. However at this time it is possible the urinalysis was negative as she has already started antibiotics. I considered possible pyelonephritis, continued UTI, AAA, nephrolithiasis. I offered her CT abdomen pelvis to evaluate for possible kidney stone as well as a AAA hour she refused. At this time I have ordered NS 500 cc as well as Rocephin IV. Also ordered a CBC, CMP urinalysis, troponin and EKG. I also considered possible epidural abscess however she has no fevers, no low back pain. No evidence of cauda equina syndrome at this time. Patient ambulating well in the ER. At this time CBC has returned normal with no leukocytosis. BMP also within normal limits with a normal creatinine function. Urinalysis negative. However this could be secondary to her finishing Macrobid course. At this time I have given her IV fluids and on re-evaluation dizziness has resolved. EKG was unremarkable. Troponin is negative. Her burning sensation has also improved after the Pyridium. I again offered her CT abdomen pelvis to see if there has a mass effect, AAA, nephrolithiasis. However she refused. She states she has a urology appointment in [place] in 1 or 2 weeks. I offered to examine her vulvovaginal area for reoccurrence of her carcinoma however she states that she does went to her doctor 1 or 2 months ago and it was normal but she is going to make another appointment with a physician to make sure it looks okay. I advised her however in couple days if her symptoms still do not improve to please return back to the ER. Patient ambulating in the ER without any difficulty. Time of 1ST Reevaluation: 10:24 Reevaluation 1ST: Unchanged Time of 2ND Reevaluation: 13:19 Reevaluation 2ND: Improved (Dizziness resolved after IV fluids and burning sensation improved after Pyridium.) Patient Education/Counseling: Diagnosis, Treatment, Prognosis Family Education/Counseling: No Family Present SEPSIS Sepsis Screen Date sepsis recognized/suspect: Aug 19, 2025 Time Sepsis recognized/suspect: 811 Recent Procedure: No On Antibiotic Therapy: No Respiratory Rate >20: No Heart Rate >90: No Temp<36 C (96.8 F) or >38.3 C: No SBP <90 or MAP <65 mmHG: No New Acute Mental Status Change: No Is the patient on CPAP, BIPAP,: No Physician Orders Urine Bacterial Culture (08/19/25 08:21) Electrocardigram (08/19/25 10:28) Electrocardigram (08/19/25 11:28) Vital Signs Date Time Temp Pulse Resp B/P (MAP) Pulse Ox O2 Delivery O2 Flow Rate FiO2 08/19/25 11:27 97.7 65 16 142/73 (96) 98 97.7 08/19/25 11:27 65 16 98 Room Air 08/19/25 10:56 71 08/19/25 08:12 98.0 82 20 153/84 97 98.0 Laboratory Tests Test 08/19/25 08:35 White Blood Count 8.8 10^3/uL (4.4-10.8) Medications Medications Dose Ordered Sig/David Route Start Time Stop Time Status Last Admin Dose Admin Ceftriaxone Sodium 50 ml @ 100 mls/hr ONCE ONCE IV 08/19/25 10:30 08/19/25 10:59 DC 08/19/25 11:47 Phenazopyridine HCl 200 mg ONCE ONCE PO 08/19/25 10:30 08/19/25 10:31 DC 08/19/25 11:47 Sodium Chloride 500 ml @ 500 mls/hr Q1H ONCE IV 08/19/25 10:30 08/19/25 11:29 DC 08/19/25 11:47 Departure 1 Departure Time of Disposition: 13:19 Impression: Primary Impression: UTI (urinary tract infection) Qualified Codes: N30.00 - Acute cystitis without hematuria Disposition: HOME / SELF CARE / HOMELESS Condition: Fair Additional Instructions: Follow up with your primary care physician, your urologist, and also your OBGYN. If you do not feel better in a few days please return back to the ER. Return sooner if symptoms worsen or persist. e-Prescriptions Phenazopyridine HCl (Phenazopyridine Hydrochlo) 200 Mg Tab 200 MG PO BID for 3 Days, #6 TAB Prov: CARLENE FONSECA MD 08/19/25 Cephalexin (KEFLEX CAPSULE) 250 Mg Cp 500 MG PO Q12HR for 10 Days, #40 TAB Prov: CARLENE FONSECA MD 08/19/25 Discharged With: Self Critical Care Note Critical Care Time?: No Stability Stability form required: No Heart Score Heart Score: Heart Score Response (Comments) Value History N/A 0 EKG N/A 0 Age N/A 0 Risk Factors N/A 0 Troponin N/A 0 Total 0 I personally scribed for CARLENE FONSECA MD ([email or web address]) on 08/19/25 at 08:23. Electronically submitted by Sasha Moreno ([facility]). CARLENE FONSECA MD Aug 19, 2025 08:23
[2025-08-19 09:10] LABS: Hematocrit 46.8 % (36.0-46.0); Hemoglobin 15.7 g/dL (12.2-16.2); Mean Corpuscular Hemoglobin 31.0 pg (28.0-32.0); Mean Corpuscular Volume 92.7 fL (80.0-100.0); Nucleated Red Blood Cells % 0.1 %
[2025-08-19 09:28] LABS: Chloride 105 mmol/L (98-107); Potassium 3.8 mmol/L (3.5-5.1); Sodium 143 mmol/L (136-145)
[2025-08-19 09:29] LABS: Anion Gap 8 (5-15); Carbon Dioxide 30 mmol/L (20-31)
[2025-08-19 09:30] LABS: Calcium 9.6 mg/dL (8.7-10.4)
[2025-08-19 09:34] LABS: BUN/Creatinine Ratio 14.1 (10.0-20.0); Blood Urea Nitrogen 14 mg/dL (9-23)
[2025-08-19 09:36] LABS: Glucose 111 mg/dL (74-106)
[2025-08-19] MEDS ORDERED: CEPH250C PO (10:17)
[2025-08-19] MEDS ORDERED: PHEN-922 PO (10:17)
[2025-08-19 10:33] LABS: Urine Protein, UAD Negative (Negative)
[2025-08-19 11:27] VITALS: BP 142/73; PULSE 65; RESP 16; TEMP 97.7; O2SAT 98
[2025-08-19] MEDS: SODIUM CHLORIDE 0.9% 500 ML IV ONE (11:47)
[2025-08-19] MEDS: PHENAZOPYRIDINE HCL 100 MG TAB PO ONE (11:47)
--- NOTE | 2025-08-20 07:03 | ECG ---
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
== END 2025-08-19 13:26 | disposition home or self-care (01) ==
LOC: ER 08:11
DX: N39.0 Urinary tract infection, site not specified (principal); I10 Essential (primary) hypertension; E11.9 Type 2 diabetes mellitus without complications; K21.9 Gastro-esophageal reflux disease without esophagitis; Z79.84 Long term (current) use of oral hypoglycemic drugs; Z85.44 Personal history of malignant neoplasm of other female genital organs; Z86.73 Personal history of transient ischemic attack (TIA), and cerebral infarction without residual deficits; Z90.49 Acquired absence of other specified parts of digestive tract; Z90.710 Acquired absence of both cervix and uterus; Z88.2 Allergy status to sulfonamides
CPT/HCPCS: 36415; 80048; 81001; 84484; 85025; 87086; 93005; 96365; 99284; J0696; J7040